=== PATIENT | male | born 1955 | race Caucasian/White ===

== ENCOUNTER 2022-06-01 13:42 | Outpatient (CLI) | payer MEDICARE, SELFPAY ==
[2022-06-01 17:41] LABS: Chloride* 102 mmol/L (96-114); Potassium* 5.6 mmol/L (3.6-5.1); Sodium* 138 mmol/L (135-149)
[2022-06-01 17:44] LABS: Blood Urea Nitrogen* 30 mg/dL (7-30); Carbon Dioxide* 26 mmol/L (20-32); Cholesterol* 247 mg/dL (90-199); Creatinine* 1.2 mg/dL (0.5-1.5); Estimated Glomerular Filt Rate 67 ml/min
[2022-06-01 17:45] LABS: Calcium* 9.5 mg/dL (8.4-10.6); Glucose* 254 mg/dL (60-115); HDL Cholesterol* 29 mg/dL (>=40); LDL Cholesterol Calculated 119 mg/dL (<100)
[2022-06-01 17:49] LABS: Triglycerides* 494 mg/dL (40-149)
[2022-06-01 18:14] LABS: PSA Screen* 0.47 ng/mL (0.10-4.00)
[2022-06-05 23:57] LABS: C-Peptide, Serum or Plasma 3.8 ng/mL (0.5-3.3)
== END 2022-06-01 13:43 | disposition home or self-care (01) ==
PROVIDERS: Visit Provider Family Medicine
DX: E13.9 Other specified diabetes mellitus without complications (principal); E78.5 Hyperlipidemia, unspecified; Z12.5 Encounter for screening for malignant neoplasm of prostate
CPT/HCPCS: 80048; 80061; 84153; 84681

== ENCOUNTER 2023-04-11 14:47 | Outpatient (REF) | payer MEDICARE, SELFPAY ==
[2023-04-11 16:00] LABS: Albumin* 4.2 g/dL (3.3-5.0)
[2023-04-11 16:01] LABS: Chloride* 103 mmol/L (96-114); Potassium* 4.6 mmol/L (3.6-5.1); Sodium* 137 mmol/L (135-149)
[2023-04-11 16:03] LABS: Alkaline Phosphatase* 75 U/L (40-150); Anion Gap 7 mEq/L (7-15); Aspartate Amino Transferase* 30 U/L (12-35); Bilirubin Total* 0.6 mg/dL (0.1-1.5); Blood Urea Nitrogen* 26 mg/dL (7-30); Carbon Dioxide* 27 mmol/L (20-32); Cholesterol* 207 mg/dL (90-199); Estimated Glomerular Filt Rate 83 ml/min
[2023-04-11 16:04] LABS: Alanine Aminotransferase* 28 U/L (4-50); Calcium* 9.1 mg/dL (8.4-10.6); Glucose* 251 mg/dL (60-115); HDL Cholesterol* 28 mg/dL (>=40); LDL Cholesterol Calculated 91 mg/dL (<100)
[2023-04-11 16:26] LABS: Triglycerides* 439 mg/dL (40-149)
[2023-04-11 17:10] LABS: Hemoglobin A1C* 8.84 % (0-5.6)
== END 2023-04-11 14:48 | disposition home or self-care (01) ==
LOC: NPINS 14:47
PROVIDERS: PCP Family Medicine
DX: E78.5 Hyperlipidemia, unspecified (principal); E11.9 Type 2 diabetes mellitus without complications
CPT/HCPCS: 80053; 80061; 83036